=== PATIENT | male | born 1980 | race African-American/Black ===

== ENCOUNTER 2022-02-24 17:51 | Emergency (ER) | payer SELFPAY ==
[~2022-02-24 17:51] MED LIST: Iopamidol 370 76% 100 ML VIAL ONE; Sodium Chloride 0.9% 500 ML BAG ONE
[2022-02-24 18:44] LABS: #Basophils 0.1 thou/uL (0.0-0.2); #Lymphocytes 2.9 thou/uL (1.20-3.40); #Monocytes 1.3 thou/uL (0.11-0.59); #Neutrophils 11.4 thou/uL (1.40-6.50); %Basophils 0.9 % (0.0-1.0); %Eosinophils 0.3 % (0.0-10.0); %Lymphocytes 18.5 % (21.0-51.0); %Monocytes 8.3 % (0.0-10.0); %Neutrophils 72.1 % (42.0-75.0); Mean Corpuscular HGB CONC 32.1 g/dL (32.0-36.0); Mean Corpuscular Hemoglobin 27.9 pg (27.0-31.0); Mean Corpuscular Volume 86.8 fL (78.0-98.0); Platelet Count 280 thou/uL (130-400); RBC Distribution Width 12.7 % (11.5-14.5); Red Blood Cell (RBC) Count 5.02 mill/uL (4.70-6.10); White Blood Cell (WBC) Count 15.9 thou/uL (4.8-10.8)
[2022-02-24 19:00] LABS: ALT (SGPT) 13 U/L (8-55); AST (SGOT) 17 U/L (5-34); Albumin 4.5 g/dL (3.5-5.0); Alkaline Phosphatase 49 U/L (40-110); Anion Gap 15 mmol/L (10-20); BUN (Urea Nitrogen) 12 mg/dL (8.9-20.6); Bilirubin, Total 1.1 mg/dL (0.2-1.2); Calc. Creatinine Clearance 0 mL/min (70-130); Calcium 9.8 mg/dL (7.8-10.44); Carbon Dioxide 24 mmol/L (22-29); Chloride 104 mmol/L (98-107); Estimated GFR 81; Globulin 3.2 g/dL (2.4-3.5); Glucose 92 mg/dL (70-105); Potassium 3.7 mmol/L (3.5-5.1); Protein, Total 7.7 g/dL (6.0-8.3); Sodium 139 mmol/L (136-145)
[2022-02-24] MEDS ORDERED: Lidocaine 1%/Epinephrine 1:100K 10 ML VIAL ONE (20:30)
== END 2022-02-24 21:13 | disposition home or self-care (01) ==
LOC: MADERS 17:51
DX: K61.0 Anal abscess (principal)
CPT/HCPCS: 36415; 46050; 72193; 80053; 85025; 87070; 87077; 87186; 87205; J7030; Q9967